=== PATIENT | female | born 1980 | race Caucasian/White ===

== ENCOUNTER 2020-11-02 07:12 | Inpatient (IN) | payer MEDICAID ==
[~2020-11-02 07:12] MED LIST: cefOXitin 2 GM Vial ONE
[2020-11-02] MEDS ORDERED: Celecoxib 200 MG Cap PO ONE (07:30)
[2020-11-02] MEDS ORDERED: Scopolamine 1.5 MG Transdermal Patch TOP SCH (07:30)
[2020-11-02] MEDS ORDERED: Acetaminophen 500 MG Tab PO ONE (07:30)
[2020-11-02] MEDS ORDERED: Dextrose 5%-Lactated Ringers 1,000 ML IV SCH (08:00)
[2020-11-02] MEDS ORDERED: cefOXitin 2 GM in Sodium Chloride 0.9% 50 ML IV ONE (08:00)
[2020-11-02] MEDS ORDERED: fentaNYL 250 MCG/5 ML SDV ONE ×2 (08:40→09:38)
[2020-11-02] MEDS ORDERED: Ondansetron 4 MG/2 ML SDV ONE (08:41)
[2020-11-02] MEDS ORDERED: Dexamethasone 4 MG/ML SDV ONE (08:41)
[2020-11-02] MEDS ORDERED: Propofol 200 MG/20 ML SDV ONE (08:41)
[2020-11-02] MEDS ORDERED: Glycopyrrolate 0.2 MG/ML 5 ML MDV ONE (08:41)
[2020-11-02] MEDS ORDERED: Rocuronium 50 MG/5 ML Vial ONE (08:41)
[2020-11-02] MEDS ORDERED: Neostigmine Methylsulfate 1 MG/ML 5 ML Syringe ONE (08:41)
[2020-11-02] MEDS ORDERED: Succinylcholine 200 MG/10 ML MDV ONE (08:41)
[2020-11-02] MEDS ORDERED: Lactated Ringers 1,000 ML ONE (08:43)
[2020-11-02] MEDS ORDERED: Ketamine 50 MG in Sodium Chloride 0.9% 49.5 ML IV SCH (09:30)
[2020-11-02] MEDS ORDERED: Magnesium Sulfate 3 GM in Sodium Chloride 0.9% 100 ML IV SCH (09:30)
[2020-11-02] MEDS ORDERED: Ketamine 500 MG/5 ML MDV IV SCH (09:30)
[2020-11-02] MEDS ORDERED: Labetalol 20 MG/4 ML Syringe ONE (09:57)
[2020-11-02] MEDS ORDERED: Acetaminophen 500 MG Tab PO SCH (12:00)
[2020-11-02] MEDS ORDERED: Cyclobenzaprine 10 MG Tab PO PRN (12:06)
[2020-11-02] MEDS ORDERED: Albuterol/Ipratropium 3.0-0.5 MG/3 ML Neb Soln INH PRN (13:00)
[2020-11-02] MEDS ORDERED: Metoclopramide 10 MG/2 ML SDV IVPUSH PRN (13:00)
[2020-11-02] MEDS ORDERED: Labetalol 20 MG/4 ML Syringe IVPUSH PRN (13:00)
[2020-11-02] MEDS ORDERED: Ondansetron 4 MG/2 ML SDV IVPUSH PRN (13:00)
[2020-11-02] MEDS ORDERED: oxyCODONE 5 MG Tab PO PRN (13:00)
[2020-11-02] MEDS ORDERED: HYDROmorphone 0.5 MG/0.5 ML Syringe IVPUSH PRN (13:00)
[2020-11-02] MEDS ORDERED: Calcium Gluconate 10% 1 GM/10 ML SDV IVPUSH PRN (13:00)
[2020-11-02] MEDS ORDERED: hydrOXYzine HCL 100 MG/2 ML SDV IM PRN (13:00)
[2020-11-02] MEDS ORDERED: diphenhydrAMINE 50 MG/ML SDV IVPUSH PRN (13:00)
[2020-11-02] MEDS ORDERED: HYDROmorphone 1 MG/ML Syringe IV PRN (13:00)
[2020-11-02] MEDS ORDERED: Acetaminophen 500 MG Tab PO PRN (13:00)
[2020-11-02] MEDS ORDERED: Pantoprazole 40 MG Vial IVPUSH SCH (14:00)
[2020-11-02] MEDS: cefOXitin 2 GM in Sodium Chloride 0.9% 50 ML IV SCH ×2 (14:20→20:21)
[2020-11-02] MEDS: Acetaminophen 500 MG Tab PO SCH ×2 (14:21→21:49)
[2020-11-02] MEDS ORDERED: MVI, Adult with Vitamin K 10 ML, Thiamine 200 MG, Zinc/Copper/Manganese/Selenium 1 ML i... IV SCH ×4 (16:00)
[2020-11-02] MEDS: Heparin Sodium 5,000 Units/ML Vial SUBCUT SCH (17:29)
[2020-11-02] MEDS ORDERED: Montelukast 10 MG Tab PO SCH (21:00)
[2020-11-02] MEDS: Dextrose 5%-Lactated Ringers 1,000 ML IV SCH (21:48)
[2020-11-03] MEDS: Dextrose 5%-Lactated Ringers 1,000 ML IV SCH (03:51)
[2020-11-03] MEDS: cefOXitin 2 GM in Sodium Chloride 0.9% 50 ML IV SCH (03:51)
[2020-11-03] MEDS ORDERED: Iopamidol 612 MG/ML 50 ML SDV PO STA (03:53)
[2020-11-03] MEDS: Heparin Sodium 5,000 Units/ML Vial SUBCUT SCH (03:54)
[2020-11-03] MEDS: Acetaminophen 500 MG Tab PO SCH (05:42)
[2020-11-03] MEDS ORDERED: Ondansetron 4 MG Tab.DIS PO PRN (06:55)
[2020-11-03] MEDS ORDERED: Dextrose 5%-Lactated Ringers 1,000 ML IV SCH (07:00)
--- NOTE | 2020-11-03 08:26 | DISCH ---
ADMISSION DIAGNOSES: 1. Morbid obesity. 2. BMI 41. 3. Anxiety. 4. Mild intermittent asthma. 5. Attention deficit hyperactivity disorder. 6. Bicornuate uterus. DISCHARGE DIAGNOSES: 1. Laparoscopic sleeve gastrectomy. 2. Liver biopsy. 3. Repair of paraesophageal diaphragmatic hernia. Date of procedure 11/02/2020. Surgeon: William Moreno MD. POSTOPERATIVE DIAGNOSES: 1. Morbid obesity. 2. Hepatomegaly. 3. Paraesophageal diaphragmatic hernia. HISTORY: Tammy Ribera is a pleasant 40-year-old female with longstanding history of morbid obesity and increasing comorbidities. After preoperative evaluation, discussion of possible risks and possible complications, she wished to proceed with surgical procedure. HOSPITAL COURSE: Tammy had her surgery on 11/02/2020. She had no operative complications. On postop day 1, she was started on step 2 gastric bypass diet. She received dietary instruction. Pain was controlled with energy protocol. Oral intake was adequate and she was able to be discharged to home. PHYSICAL EXAMINATION: GENERAL: Tammy is a pleasant 40-year-old female. VITAL SIGNS: Height is 5 feet 3.5 inches, weight is 237 pounds, BMI is 41. TPR 99, 64, 14, blood pressure 103/61. HEENT: Negative. NECK: Supple. HEART: Regular rate and rhythm. LUNGS: Clear. ABDOMEN: Dressings dry and intact. ANGEL drain is in place. It will be removed right prior to discharge. It is draining a light pink serosanguineous drainage. EXTREMITIES: Without peripheral edema. DISPOSITION: Discharged to home. CONDITION: Stable and improving. FOLLOWUP APPOINTMENT: Juanis Inman PA-C, at [facility] on 11/12/2020 at 10:15 a.m. HOME MEDICATIONS: 1. Celebrex 200 mg b.i.d., #28. 2. Tylenol 1000 mg every 8 hours p.r.n. pain. 3. Zofran ODT 4 mg sublingual every 4 hours p.r.n. nausea, #30. 4. She is to resume home medication of Concerta 54 mg oral daily. 5. Singulair 10 mg oral daily. 6. Venlafaxine 150 mg oral daily and venlafaxine 75 mg oral daily. 7. Discontinue taking vitamins and supplements until after 1st postop appointment. DIET: Step 2 gastric bypass diet with no cereal until 12/04/2020. ACTIVITY: No lifting over 10 pounds for 2 weeks. Other activity: Walk at least 6 times inside your home. Driving: Do not drive for 1 week. Shower/bathing: May shower. DISCHARGE INSTRUCTIONS: Notify provider if any fever, increased pain, nausea, vomiting. Keep site clean and dry. Wear abdominal binder for 2 weeks and then as tolerated. SPECIAL INSTRUCTION: Use incentive spirometer 10 times every hour while awake. /[id number]
[2020-11-03] MEDS ORDERED: METHYLPHENIDATE 54 MG PO SCH (09:00)
[2020-11-03] MEDS ORDERED: Venlafaxine 75 MG Cap.ER PO SCH (09:00)
[2020-11-03] MEDS ORDERED: Celecoxib 200 MG Cap PO SCH (09:00)
[2020-11-03] MEDS ORDERED: SCOPOLAMINE PATCH CHECK TOP SCH (09:00)
--- NOTE | 2020-11-03 09:43 | CR ---
[facility] HISTORY: Postbariatric surgery FINDINGS: Patient swallowed water-soluble contrast. Upright views of the abdomen show no evidence of extravasation or obstruction. There is a surgical drain in the left upper quadrant. IMPRESSION: Status post bariatric surgery No extravasation or obstruction seen
[2020-11-04] MEDS ORDERED: Cyanocobalamin (Vitamin B12) 1,000 MCG/ML SDV IM ONE (09:00)
--- NOTE | 2020-11-09 10:41 | OR ---
DATE OF PROCEDURE: 11/02/2020 SURGEON: William Moreno MD PREOPERATIVE DIAGNOSIS: Morbid obesity. POSTOPERATIVE DIAGNOSES: 1. Morbid obesity. 2. Marked hepatomegaly. 3. Paraesophageal diaphragmatic hernia. OPERATIVE PROCEDURE: Diagnostic laparoscopy with: 1. Laparoscopic sleeve gastrectomy (66393). 2. Carlos Alberto-Cut needle liver biopsy (49788). 3. Repair of paraesophageal diaphragmatic hernia with mesh (40476). ANESTHESIA: General. PHARMACY PICKING TECHNICIAN: Juanis Inman PA-C INDICATIONS FOR PROCEDURE: This is a 40-year-old female presenting with longstanding morbid obesity and increasingly significant comorbidities. After preoperative evaluation and discussion, she wished to proceed with a sleeve gastrectomy. Potential risks of procedure including bleeding, infection, injury to underlying viscera, problems with leaks from the sleeve staple line as well as possibility of cardiopulmonary, septic, or hemorrhagic complications leading to were discussed and the patient wishes to proceed. DETAILS OF PROCEDURE: The patient was taken to the operating room, and after general endotracheal anesthesia was induced, she was converted to a lithotomy position and the abdomen prepped and draped. 15 cm inferior and 5 cm left of the xiphoid process transverse incision was made and the peritoneal cavity entered under direct vision with an Optiview trocar and inflated to 15 mmHg pressure with CO2. Laparoscope was reinserted. No underlying trocar insertion site injuries were seen. Bilateral transverse abdominis plane blocks were then placed and 5 additional trocars were placed across the upper mid abdomen. The patient was noted to have marked hepatomegaly with liver volume being roughly 2 to 3 times normal liver and grossly fatty infiltrated. Carlos Alberto-Cut needle biopsies were obtained from left lobe of liver. Minimal bleeding from the biopsy sites was controlled with electrocautery. The liver was then retracted anteriorly. The patient was noted to have a moderate-sized paraesophageal diaphragmatic hernia. This contained some perigastric fat and gastric fundus both anteriorly and posteriorly. The peritoneum overlying the esophagogastric junction was divided and then dissection between the right and left crura and the esophagus was established and the retroesophageal dissection completed. The esophagus was then freed up such there was roughly 4 cm intraabdominal esophageal length. The posterior crural repair was accomplished with 0 Ethibond sutures reinforced with PTFE pledgets and then reinforced with Phasix ST mesh placed in a horseshoe type configuration behind the esophagus and over the crural repair and then fixed to the crura on each side with titanium tacking screws. At this point, the greater omentum was divided beginning 2 cm proximal to the pylorus away from the greater curvature with Harmonic scalpel. This was continued up through the length of the greater curvature and through the short gastric including the highest posterior short gastric vessels. The fundus was dissected free from the crura to avoid a cul-de-sac of stomach in that area. After marking out the initial staple lines in the antrum beginning 2 cm proximal to the pylorus and then underlying the incisura angularis with care taken to avoid overtightening of the closure of that location once two initial fires with KAREEN mary was accomplished with black load. A 32-Macedonian catheter was placed orally per Anesthesia and positioned across the lesser curvature of the stomach and then placed on suction. Remainder of sleeve gastrectomy was then accomplished with reinforced black and purple loads up against the edge of the 32-Macedonian catheter, and at that point following completion of the staple line, it appeared to be intact from . The catheter was taken off suction at this point and the length of the staple line was reinforced with fibrin sealant focusing on the area of the esophagogastric junction. Omentum was then pulled off from that area as well and sutured there with some 3-0 Vicryl stitch. At that point, air was injected into the stomach while it was submerged in antibiotic-containing saline solution. No leaks or bleeding were seen, and the gastric specimen was retrieved through the left lateral trocar site. A Morteza- Martin drain was taken from the left lateral trocar site as well and then placed adjacent to the esophagogastric junction and from there up into the splenic fossa. The trocars were then removed and the peritoneal cavity deflated. The incision was closed with 4-0 Vicryl skin stitch which was also used to fix the drain. The patient was taken to the recovery room in satisfactory condition. There were no complications. The physician management assistant, Juanis Inman, played an essential role in assisting in this case helping to position the patient, retract structures as needed as well as suturing and cutting sutures when indicated. Her presence improved patient safety and decreased operative time. William Moreno MD /[id number]
== END 2020-11-03 08:50 | disposition home or self-care (01) | DRG 621 ==
LOC: JP.SDS 07:12 → JP.MS 07:12 → EDSTATUS 09:15 → JP.MS 10:40
PROVIDERS: ADMIT Surgery; ATTEND Surgery
PROC: 0DB64Z3 Excision of Stomach, Percutaneous Endoscopic Approach, Vertical (ICD-10-PCS; principal; 2020-11-02)
PROC: 0FB24ZX Excision of Left Lobe Liver, Percutaneous Endoscopic Approach, Diagnostic (ICD-10-PCS; 2020-11-02)
PROC: 0BUT4JZ Supplement Diaphragm with Synthetic Substitute, Percutaneous Endoscopic Approach (ICD-10-PCS; 2020-11-02)
DX: E66.01 Morbid (severe) obesity due to excess calories (principal); Z68.41 Body mass index [BMI] 40.0-44.9, adult; K44.9 Diaphragmatic hernia without obstruction or gangrene; F41.9 Anxiety disorder, unspecified; R16.0 Hepatomegaly, not elsewhere classified; J45.20 Mild intermittent asthma, uncomplicated; F90.9 Attention-deficit hyperactivity disorder, unspecified type; Q51.3 Bicornate uterus; Z79.899 Other long term (current) drug therapy; Z91.09 Other allergy status, other than to drugs and biological substances
CPT/HCPCS: 36415; 74240; 74240-26; 81025; 82962; 86850; 86900; 86901; 88307; 88313; 93005; 93010; A9270-GY; C1713; C1781; C9113; J0171; J0330; J0694; J1100; J1644; J2405; J2704; J2710; J2795; J3010; J3411; J3475; J3490; J7050; J7120; J7121; Q9967